=== PATIENT | female | born 1965 | race Hispanic/Latino ===

== ENCOUNTER 2024-01-22 12:16 | Emergency (ER) | payer BC ==
[~2024-01-22] VITALS: Ht 152.4 cm; Wt 124.3 kg
[2024-01-22 13:06] LABS: BASOPHILS # (AUTO) 0.18 K/uL (0.00-0.20); BASOPHILS % (AUTO) 0.7 % (0.0-5.0); EOSINOPHILS # (AUTO) 0.02 K/uL (0.00-0.70); EOSINOPHILS % (AUTO) 0.1 % (0.0-8.0); IMMATURE GRANULOCYTE ABSOLUTE 1.33 K/uL (0-1); LYMPHOCYTES % (AUTO) 8.4 % (21.0-51.0); MEAN CORPUSCULAR HEMOGLOBIN 25.3 pg (27.0-33.0); MEAN CORPUSCULAR HGB CONC 32.6 g/dL (32.0-36.0); MEAN CORPUSCULAR VOLUME 77.8 fL (79-99); MONOCYTES # (AUTO) 1.1 K/uL (0.1-1.0); MONOCYTES % (AUTO) 4.5 % (3.0-13.0); NEUTROPHILS # (AUTO) 19.6 K/uL (1.8-7.7); NEUTROPHILS % (AUTO) 80.8 % (40.0-77.0); NUCLEATED RED BLOOD CELLS 0.2 % (0.0-0.19); PLATELET COUNT (AUTO) 439 K/uL (130-400); RED CELL DISTRIBUTION WIDTH 18.3 % (11.0-15.5); WHITE BLOOD COUNT (AUTO) 24.3 K/uL (4.8-10.8)
[2024-01-22 13:10] LABS: CREATININE 1.5 mg/dL (0.5-1.0); POTASSIUM 4.7 mmol/L (3.5-5.1)
[2024-01-22] MEDS: 0.9%NACL 1000ML 1,365 ML IV ONE (13:27)
[2024-01-22] MEDS: ZOSYN 3.375GM +NS 50ML IV ONE (13:27)
[2024-01-22] MEDS: ZOSYN 3.375GM+NS 50ML 50 ML ONE (13:27)
[2024-01-22 13:46] LABS: ADD UA MICROSCOPIC YES; APPEARANCE,URINE HAZY (CLEAR); BILIRUBIN,URINE NEGATIVE (NEGATIVE); COLOR,URINE YELLOW (YELLOW); GLUCOSE, URINE (UA) NEGATIVE (NEGATIVE); KETONES,URINE 5 mg/dL (NEGATIVE); LEUKOCYTE ESTERASE ,URINE 25 Leu/uL (NEGATIVE); NITRATE,URINE NEGATIVE (NEGATIVE); OCCULT BLOOD,URINE SMALL (NEGATIVE); PROTEIN,URINE 30 mg/dL (NEGATIVE); UROBILINOGEN,URINE 0.2 mg/dL (0.2-1.0)
[2024-01-22 13:52] LABS: BACTERIA,URINE MOD /HPF (None Seen); MUCUS,URINE RARE LPF (None Seen); SQUAMOUS EPITHELIAL CELL,UR MANY /HPF (0-2)
[2024-01-22 13:54] LABS: ABG OXYGEN SATURATION 41.5 % (95.0-99.0); BASE EXCESS,VENOUS BLOOD GAS -6.1 (-2.0-3.0); DEVICE COMMENT VBGFLOR; HCO3,VENOUS BLOOD GAS 17.7 (21.0-28.0); PCO2,VENOUS BLOOD GAS 31 (32-45); PH,VENOUS BLOOD GAS 7.381 (7.350-7.450); PO2,VENOUS BLOOD GAS 23.6 mmHg (35.0-45.0); VENT MODE, BG VBG (ROOM AIR)
[2024-01-22] MEDS: VANCOMYCIN KIT 1 GM/250 ML IV.KIT IV ONE (14:09)
[2024-01-22] MEDS: CLINDAMYCIN IVPB 600MG/50ML 50 ML IV STA (16:52)
[2024-01-22] MEDS: 0.9%NACL 1000ML 1,000 ML IV SCH (16:53)
[2024-01-22 19:14] VITALS: BP 103/62; PULSE 108; RESP 17; O2SAT 94
[2024-01-22] MEDS: ACETAMINOPHEN 500 MG TABLET PO ONE (19:20)
[2024-01-22 19:30] VITALS: TEMP 101.2
[2024-01-22] MEDS: ACETAMINOPHEN 650 MG SUPPOSITORY RC ONE ×2 (19:30→19:31)
== END 2024-01-22 19:39 | disposition short-term general hospital (02) ==
LOC: EDH 12:16
DX: A41.9 Sepsis, unspecified organism (principal); R65.21 Severe sepsis with septic shock; K55.30 Necrotizing enterocolitis, unspecified; E66.01 Morbid (severe) obesity due to excess calories; E03.9 Hypothyroidism, unspecified; E11.9 Type 2 diabetes mellitus without complications; Z68.30 Body mass index [BMI] 30.0-30.9, adult
CPT/HCPCS: 99291; 74176; 96365; 96366; 96367; 83735; 84484; 80048; 82803; 85025; 87040 ×2; 87086; 83605 ×2; 81001; 36415; 71045; 96368; 93005; 36600; J2543; J3370; J3490